=== PATIENT | female | born 2000 | race Caucasian/White ===

== ENCOUNTER 2020-06-29 19:47 | Emergency (ER) | payer MEDICAID, SELFPAY ==
[~2020-06-29] VITALS: Ht 160 cm; Wt 72.6 kg
--- NOTE | 2020-06-29 20:10 | NUR ---
Patient to ER TENT for evaluation.
[2020-06-29 20:18] VITALS: BP_SYST 96
--- NOTE | 2020-06-29 20:49 | NUR ---
ER Dr. JEFFRIES at bedside examining patient.
--- NOTE | 2020-06-29 22:18 | NUR ---
PATIENT AWAITING LAB RESULTS. NO ACUTE DISTRESS NOTED.
[2020-06-29 22:21] LABS: INFLUENZA A&B ANTIGEN SCREEN NEGATIVE FOR A & B (NEGATIVE); STREPTOCOCCUS A SCREEN (RAPID) NEGATIVE (NEGATIVE)
[2020-06-29 23:17] VITALS: BP_SYST 112
--- NOTE | 2020-06-29 23:17 | NUR ---
Patient given written and verbal discharge instructions and verbalizes understanding. ER MD discussed with patient the results and treatment provided. Patient in stable condition. ID arm band removed. No Rx given. Patient educated on pain management and to follow up with PMD. Pain Scale 0/10 Opportunity for questions provided and answered.
== END 2020-06-29 23:17 | disposition home or self-care (01) ==
LOC: SED 19:47
DX: J06.9 Acute upper respiratory infection, unspecified (principal); J45.909 Unspecified asthma, uncomplicated; Z20.828 Contact with and (suspected) exposure to other viral communicable diseases
CPT/HCPCS: 36415; 71045; 86403; 86710; 87081; 99284

== ENCOUNTER 2020-10-16 20:19 | Emergency (ER) | payer MEDICAID, SELFPAY ==
[~2020-10-16] VITALS: Ht 160 cm; Wt 68.0 kg
[2020-10-16 20:28] VITALS: BP_SYST 127
[2020-10-16 21:11] LABS: BILIRUBIN,URINE NEGATIVE (NEGATIVE); CLARITY/URINE CLEAR (CLEAR); COLOR,URINE YELLOW (YELLOW); GLUCOSE,URINE NEGATIVE (NEGATIVE); KETONES,URINE TRACE (NEGATIVE); LEUKOCYTE ESTERASE ,URINE NEGATIVE (NEGATIVE); NITRITE, URINE NEGATIVE (NEGATIVE); PROTEIN URINE NEGATIVE (NEGATIVE); UROBILINOGEN,URINE 0.2 (0.2-1.0)
[2020-10-16] MEDS ORDERED: ALPRAZolam 0.25 MG TABLET PO ONE (21:30)
[2020-10-16] MEDS ORDERED: ACETAMINOPHEN 500 MG TABLET PO ONE (21:30)
[2020-10-16 21:37] LABS: BLOOD, URINE TRACE (NEGATIVE)
[2020-10-16 21:42] LABS: BACTERIA,URINE FEW /HPF (None Seen); WBC,URINE 0-3 /HPF (0-3)
[2020-10-16] MEDS ORDERED: DEXAMETHASONE SOD PHOSPHATE 10 MG/ML VIAL ONE (22:42)
[2020-10-16] MEDS ORDERED: DEXAMETHASONE SOD PHOSPHATE 10 MG/ML VIAL IM ONE (22:45)
[2020-10-16 22:50] VITALS: BP_SYST 108
== END 2020-10-16 22:50 | disposition home or self-care (01) ==
LOC: SED 20:19
DX: T50.905A Adverse effect of unspecified drugs, medicaments and biological substances, initial encounter (principal); J45.909 Unspecified asthma, uncomplicated; Y92.89 Other specified places as the place of occurrence of the external cause
CPT/HCPCS: 81000; 81025; 96372; 99283; J1100